=== PATIENT | female | born 1970 | race Caucasian/White ===

== ENCOUNTER 2019-05-26 09:07 | Day surgery (SDC) | payer BC ==
--- NOTE | 2019-05-25 11:13 | RAD REPORT ---
EXAM DESCRIPTION: Adriana Bradford (2 Views)05/25/2019 10:49 am CLINICAL HISTORY: Preop cholecystectomy COMPARISON: 2016 FINDINGS: The lungs appear clear of acute infiltrate. The heart is normal size IMPRESSION: No acute abnormalities displayed
[2019-05-25 11:23] LABS: Absolute Lymphocytes (CBC) 2.8 K/uL (0.7-4.9); Basophils % 0.9 % (0-1.3); Hematocrit 40.1 % (36.0-45.0); Lymphocytes % 29.1 % (15.3-44.8); MPV 9.7 fL (7.6-11.3); RBC Red Blood Cell Count 4.19 M/uL (3.86-4.86)
[2019-05-25 11:39] LABS: Potassium 4.1 mmol/L (3.5-5.1)
[2019-05-25 11:41] LABS: ALT/SGPT 28 U/L (12-78); AST/SGOT 17 U/L (15-37); Albumin 3.4 g/dL (3.4-5.0); Alkaline Phosphatase 74 U/L (45-117); Amylase Level 56 U/L (25-115); Bilirubin Direct < 0.1 mg/dL (0-0.2); Bilirubin Total 0.4 mg/dL (0.2-1.0); Lipase 252 U/L (73-393)
[2019-05-26] MEDS ORDERED: Ringers Lactate 1,000 ML IV ONE ×2 (09:42→13:41)
[2019-05-26] MEDS ORDERED: CEFOXITIN/SWI 1gm 0 GM/0 ML SYR ONE (10:20)
[2019-05-26] MEDS ORDERED: CIPROFLOXACIN 400mg IV 400 MG/200 ML BAG IV ONE (11:02)
--- NOTE | 2019-05-26 11:31 | EKG ---
Test Date: 2019-05-25 Test Time: 10:32:18 Elevator Repairer: ANJEL MEASUREMENT RESULTS: Intervals: Rate: 55 MS: 182 QRSD: 86 QT: 444 QTc: 424 [place]: P: 61 MS: 182 QRS: 86 T: 73 INTERPRETIVE STATEMENTS: Sinus bradycardia Otherwise normal ECG No previous ECG available for comparison Electronically Signed On 05-26-19 11:29:48 CDT by Fan Aguiar
[2019-05-26] MEDS ORDERED: PROPOFOL 200 MG/20 ML VIAL IV ONE (13:37)
[2019-05-26] MEDS ORDERED: MIDAZOLAM HCL 2 MG/2 ML INJ ONE (13:37)
[2019-05-26] MEDS ORDERED: LIDOCAINE 2% MPF 5 ML VIAL ONE (13:37)
[2019-05-26] MEDS ORDERED: FENTANYL CITR 100 MCG/2 ML ONE (13:37)
[2019-05-26] MEDS ORDERED: ROCURONIUM 50 MG/5 ML VIAL IV ONE (13:37)
[2019-05-26] MEDS ORDERED: dexAMETHasone 4 MG/ML VIAL ONE (13:38)
[2019-05-26] MEDS ORDERED: ONDANSETRON 4 MG/2 ML VIAL ONE ×2 (13:38→16:31)
[2019-05-26] MEDS ORDERED: Mastisol Adhesive Liq ONE (13:41)
[2019-05-26] MEDS ORDERED: NEOSTIGMINE 1 MG/ML -10 ML VIAL ONE (13:41)
[2019-05-26] MEDS ORDERED: GLYCOPYRROLATE 0.2 MG/ML SYR ONE ×2 (13:41→14:14)
[2019-05-26] MEDS ORDERED: PROMETHAZINE 25 MG/ML VIAL ONE (13:57)
[2019-05-26] MEDS: HYDROMORPHONE HCL 2 MG/ML inj ONE ×4 (13:59→14:35)
--- NOTE | 2019-05-26 14:01 | P.BOP ---
Preoperative diagnosis: RUQ abd pain, biliary dyskinesia Postoperative diagnosis: same Primary procedure: Laparoscopic cholecystectomy Audiovisual Technician: Karen Wright (Inderjit) Estimated blood loss: <10cc Specimen: gb Findings: as above Anesthesia: General Complications: None Transferred to: Recovery Room Condition: Good
[2019-05-26 14:34] VITALS: TEMP 97.4
[2019-05-26] MEDS ORDERED: CODEINE 30MG/APAP 300MG TAB ONE (15:18)
[2019-05-26 16:17] VITALS: BP 92/69; O2SAT 97
--- NOTE | 2019-05-28 20:02 | OP ---
Date of Procedure: 05/26/2019 Surgeon: Eugene Arechiga MD Sewer Contractor: [employer] Preoperative Diagnoses: 1.Right upper quadrant abdominal pain. 2.Biliary dyskinesia. Postoperative Diagnoses: 1.Right upper quadrant abdominal pain. 2.Biliary dyskinesia. Procedure Performed: Laparoscopic cholecystectomy. Specimens: Gallbladder. Anesthesia: General plus local. Indications: This is a case of a female who comes to us with above diagnosis. Fully explained the b enefits, alternatives, and risks of laparoscopic, possible open cholecystectomy, which include but ar e not limited to infection, bleeding, damage to adjacent structures as complication, cholelithiasis, bile leak, pancreatitis, NC, and even . She also understands this may not relieve the symptoms. She might need more than one surgical intervention. She understood, signed a consent. Description Of Procedure: The patient was brought to the operating room, placed in supine position. Anesthesia was done without complication. Abdominal area was prepped and draped in the usual steril e fashion. Marcaine 0.5% was injected for local anesthetic after time-out. Incision was carried rhett n in the infraumbilical region. Incision was carried down to fascia, which was opened under direct v ision. Peritoneum was encountered, opened under direct vision. Vicryl #1 placed inside the fascia. [place] trocar was carefully introduced. No bleeding was obtained. I placed 3 more trocars, 5 mm ea ch one of them, in the epigastric area under direct visualization. A grasper was placed in the fundu s of the gallbladder, another grasper in the infundibulum, retracted the gallbladder in the inferolat eral fashion exposing the triangle of [place], obtaining critical view of safety. Cystic duct and cyst ic artery were clearly isolated free circumferentially and the connection between those and the gallb ladder was clearly identified. I proceeded to ligate the cystic artery and cystic duct with at least 3 clips proximal, 1 clip distal, ligation in the middle. Same was done with the cystic artery. No bile leak. No bleeding. The gallbladder was removed from the liver using Bovie cauterizer and remov ed from abdominal cavity using EndoCatch through the umbilical incision. The area was inspected once again. No bile leak. No bleeding. At that moment, I proceeded to remove the trocars under direct vision. Deflated the pneumoperitoneum. Closed the fascia with #1 Vicryl. Irrigated subcutaneous ti ssue, closed that with 3-0 chromic and then the skin in a subcuticular fashion with 3-0 chromic and S kayla-Strips on top. Sponge counts and instrument counts were correct. The patient tolerated the pro cedure well. The patient was sent to Recovery in stable condition. Disposition: Home. Followup: Follow up in my office in 1 week. Call for appointment [phone]. Keep area dry for 48 ho urs, then may shower. Keep Steri-Strips intact. Medications: See orders. GÉNESIS/MODL Voice ID: [id number] Report ID: [id number]
== END 2019-05-26 16:50 | disposition home or self-care (01) ==
LOC: OR 09:07
PROVIDERS: ATTEND Surgery
PROC: 0FT44ZZ Resection of Gallbladder, Percutaneous Endoscopic Approach (ICD-10-PCS; principal; 2019-05-26 11:15)
DX: K81.1 Chronic cholecystitis (principal); K82.8 Other specified diseases of gallbladder; K21.9 Gastro-esophageal reflux disease without esophagitis; M19.90 Unspecified osteoarthritis, unspecified site; F17.210 Nicotine dependence, cigarettes, uncomplicated; Z88.0 Allergy status to penicillin; Z88.8 Allergy status to other drugs, medicaments and biological substances; Z80.49 Family history of malignant neoplasm of other genital organs; Z80.1 Family history of malignant neoplasm of trachea, bronchus and lung; Z82.49 Family history of ischemic heart disease and other diseases of the circulatory system
CPT/HCPCS: 93005; 85025; 80048; 36415; 82150; 81025; 80076; 88304; 83690; 71046; 47562; J2704; J2710; J2550; J2250; J1170; J3010; J2405 ×2; J0744